=== PATIENT | male | born 1950 | race Caucasian/White ===

== ENCOUNTER → 2016-11-13 | Day surgery (SDC) | payer OTHER ==
[~2016-11-13] VITALS: Ht 180.3 cm; Wt 91.6 kg
[~2016-11-13] MED LIST: ASPI1TAB PO; CORE6.25 PO; DULC5TAB PO; GLYB5TA PO; HYZA100T6 PO; HumaLOG INSULIN (NovoLOG) PER UNIT As Ordered ONE; HumaLOG INSULIN (NovoLOG) PER UNIT SC ONE; HumaLOG INSULIN (NovoLOG) PER UNIT SC SCH; ISOVUE-300 61% 50ML VIAL (Q9967) As Ordered ONE; ISOVUE-300 61% 50ML VIAL (Q9967) IV ONE; ISOVUE-300 61% 50ML VIAL (Q9967) XX ONE; JANU50TA8 PO; JARD1TAB PO; LEVO500T32 PO; LIDOCAINE 2% INJ 100 MG/5 ML SDV (FOR ANES.) As Ordered ONE; LR 1,000 ML IV SCH; MAGN250T2 PO; MIDAZOLAM INJ 2 MG/2 ML VIAL (J2250) As Ordered ONE; NEXI40GR PO; NS 1,000 ML IV SCH; ONDANSETRON 4MG/2ML VIAL (J2405) IV PRN; PROPOFOL 200 MG/20 ML VIAL As Ordered ONE; ROCURONIUM BROMIDE 50 MG/5 ML VIAL As Ordered ONE; fentaNYL 100 MCG/2 ML INJECTION (J3010) IV PRN; fentaNYL 250 MCG/5 ML INJECTION (J3010) As Ordered ONE
--- NOTE | 2016-11-13 10:06 | ROOR ---
Patient Name: Marv Martin Procedure Date: 11/13/2016 9:25 AM Date of : 1950 Age: 66 Room: [facility] Gender: Male Note Status: Finalized Procedure: ERCP + Balloon Sweep Indications: Abdominal pain of suspected biliary origin Providers: Shiva Patel MD Referring MD: DARI CHAPIN MD Requesting Provider: Medicines: General Anesthesia Complications: No immediate complications. Procedure: Pre-Anesthesia Assessment: - The heart rate, respiratory rate, oxygen saturations, blood pressure, adequacy of pulmonary ventilation, and response to care were monitored throughout the procedure. The Duodenoscope was introduced through the mouth, and advanced to the duodenum and used to cannulate the bile duct. The ERCP was accomplished without difficulty. The patient tolerated the procedure well. Findings: A biliary sphincterotomy had been performed. The sphincterotomy appeared open. A short 0.035 inch Soft Jagwire was passed into the biliary tree. The short-nosed traction sphincterotome was passed over the guidewire and the bile duct was then deeply cannulated. Contrast was injected. I personally interpreted the bile duct images. Ductal flow of contrast was adequate. Image quality was adequate. Contrast extended to the bifurcation. The entire biliary tree was borderline dilated. The biliary tree was swept with a 12 mm balloon starting at the bifurcation. Sludge was swept from the duct. Debris was swept from the duct. Impression: - Prior biliary endoscopic sphincterotomy appeared open. - The entire biliary tree was borderline dilated. - The biliary tree was swept and sludge and debris were found. - The examination was otherwise normal. Recommendation: - Discharge patient to home. - Continue present medications. - Return to referring physician. - The findings and recommendations were discussed with the patient's family. Attending Participation: I personally performed the entire procedure. Shiva Patel MD Shiva Patel MD 11/13/2016 10:06:02 AM This report has been signed electronically. Number of Addenda: 0 Note Initiated On: 11/13/2016 9:25 AM Estimated Blood Loss: Estimated blood loss: none.
[2016-11-13 11:00] VITALS: BP 132/82
--- NOTE | 2016-11-13 11:41 | REP ---
C-ARM VIEWS DURING ERCP: 13 C-arm views are performed during ERCP exam. Common bile duct is catheterized and contrast is injected. Balloon is inflated in the distal end of the common bile duct. The common bile duct is again noted to be mild to moderately dilated. No definite filling defect is seen. 1 minute 27 seconds fluoroscopy time utilized for the procedure. Signed by Gonzalo Hernandez MD 11/13/2016 02:01 P
== END | disposition home or self-care (01) ==
LOC: M SDC 07:38
PROVIDERS: ATTEND Internal Medicine Gastroenterology
DX: R10.9 Unspecified abdominal pain (principal); E11.9 Type 2 diabetes mellitus without complications; I25.2 Old myocardial infarction; Z88.1 Allergy status to other antibiotic agents; Z79.899 Other long term (current) drug therapy; K21.9 Gastro-esophageal reflux disease without esophagitis; Z79.84 Long term (current) use of oral hypoglycemic drugs
CPT/HCPCS: 43264; 74330; J2250; J3010; Q9967